=== PATIENT | female | born 1935 | race African-American/Black ===

== ENCOUNTER 2017-06-12 20:31 | Emergency (ER) | payer OTHER ==
[~2017-06-12] VITALS: Ht 165.1 cm; Wt 55.0 kg
[2017-06-12 20:33] VITALS: BP 140/90
== END 2017-06-12 22:18 | disposition left against medical advice (07) ==
LOC: ER 20:31
DX: R53.1 Weakness (principal); Z53.21 Procedure and treatment not carried out due to patient leaving prior to being seen by health care provider